=== PATIENT | male | born 1970 | race Asian ===

== ENCOUNTER 2022-05-02 11:35 | Emergency (ER) | payer OTHER ==
[~2022-05-02] VITALS: Ht 154.9 cm; Wt 54.5 kg
[2022-05-02] MEDS: LIDOCAINE/PF 1% 2 ML VIAL IM ONE (13:39)
[2022-05-02] MEDS: CefTRIAXone SODIUM 1 GM/VIAL IM ONE (13:40)
[2022-05-02] MEDS: ACETAMINOPHEN 325 MG TABLET PO ONE (13:40)
[2022-05-02 14:04] VITALS: BP 126/77
== END 2022-05-02 14:19 | disposition home or self-care (01) ==
LOC: EMS 11:36
DX: L03.116 Cellulitis of left lower limb (principal); L02.416 Cutaneous abscess of left lower limb
CPT/HCPCS: 99283; 96372; J0696; J3490

== ENCOUNTER 2022-11-10 09:29 | Emergency (ER) | payer OTHER ==
[~2022-11-10] VITALS: Ht 167.6 cm; Wt 61.5 kg
[2022-11-10 09:33] VITALS: TEMP 98
[2022-11-10 09:43] VITALS: BP 122/78; PULSE 90; RESP 18
[2022-11-10] MEDS ORDERED: LIDOCAINE 1% 10 ML VIAL SQ ONE (09:45)
[2022-11-10] MEDS ORDERED: POVIDONE-IODINE 10% 120 ML SOLUTION TP ONE (09:45)
[2022-11-10] MEDS ORDERED: SULF-261 PO (09:48)
[2022-11-10] MEDS ORDERED: CEPH-558 PO (09:48)
== END 2022-11-10 10:11 | disposition home or self-care (01) ==
LOC: EMS 09:29
DX: L02.211 Cutaneous abscess of abdominal wall (principal)
CPT/HCPCS: 99283; 10060; J3490

== ENCOUNTER 2022-11-12 19:49 | Emergency (ER) | payer OTHER ==
[~2022-11-12 19:49] MED LIST: CEPH-558 PO; SULF-261 PO
== END 2022-11-12 21:14 | disposition left against medical advice (07) ==
LOC: EMS 19:51
DX: Z53.21 Procedure and treatment not carried out due to patient leaving prior to being seen by health care provider (principal)

== ENCOUNTER 2022-11-13 17:41 | Emergency (ER) | payer OTHER ==
[~2022-11-13] VITALS: Ht 165.1 cm; Wt 54.5 kg
[2022-11-13 19:28] VITALS: BP 109/72; PULSE 82; RESP 18; TEMP 98.1
== END 2022-11-13 19:31 | disposition home or self-care (01) ==
LOC: EMS 17:44
DX: S30.92XD Unspecified superficial injury of abdominal wall, subsequent encounter (principal); L02.211 Cutaneous abscess of abdominal wall; X58.XXXD Exposure to other specified factors, subsequent encounter
CPT/HCPCS: 99281; Z7502

== ENCOUNTER 2023-11-09 13:27 | Emergency (ER) | payer OTHER ==
[~2023-11-09] VITALS: Ht 165.1 cm; Wt 68.2 kg
[2023-11-09 13:31] VITALS: TEMP 98.4
[2023-11-09] MEDS ORDERED: CEPH-558 PO (15:16)
[2023-11-09] MEDS ORDERED: SULF-261 PO (15:17)
[2023-11-09 15:55] VITALS: BP 140/75; PULSE 102; RESP 18
== END 2023-11-09 16:10 | disposition home or self-care (01) ==
LOC: EMS 13:27
DX: L03.115 Cellulitis of right lower limb (principal)
CPT/HCPCS: 99283

== ENCOUNTER → 2023-12-14 | Emergency (ER) | payer OTHER ==
[~2023-12-14] VITALS: Ht 162.6 cm; Wt 54.5 kg
[~2023-12-14] MED LIST changes: +DOXY-354 PO
[2023-12-14 13:40] VITALS: BP 148/88; PULSE 90; RESP 11; TEMP 97.7
== END | disposition home or self-care (01) ==
LOC: EMS 13:18
DX: L30.9 Dermatitis, unspecified (principal)
CPT/HCPCS: 99283; Z7502

== ENCOUNTER 2023-12-17 14:13 | Emergency (ER) | payer SELFPAY ==
[~2023-12-17] VITALS: Ht 165.1 cm; Wt 54.5 kg
[2023-12-17 19:12] VITALS: BP 144/88; PULSE 98; RESP 18; TEMP 98.1
[2023-12-17] MEDS ORDERED: DIPH50 PO (19:12)
== END 2023-12-17 19:25 | disposition home or self-care (01) ==
LOC: EMS 14:13
DX: L30.9 Dermatitis, unspecified (principal)
CPT/HCPCS: 99282; Z7502